=== PATIENT | male | born 1950 | race Two or more races ===

== ENCOUNTER 2024-07-26 11:46 | Emergency (ER) | payer OTHER ==
[~2024-07-26] VITALS: Ht 167.6 cm; Wt 77.1 kg
[2024-07-26 12:59] VITALS: BP 145/81; TEMP 98; O2SAT 99
== END 2024-07-26 13:00 ==
LOC: ER 11:57
DX: Z48.00 Encounter for change or removal of nonsurgical wound dressing (principal); E11.9 Type 2 diabetes mellitus without complications; E78.5 Hyperlipidemia, unspecified; I10 Essential (primary) hypertension; Z88.0 Allergy status to penicillin